=== PATIENT | female | born 1985 | race Caucasian/White ===

== ENCOUNTER 2020-05-10 14:37 | Emergency (ER) | payer OTHER | END 2020-05-10 15:33 | disposition home or self-care (01) | LOC: JVIRT 14:37 | DX: U07.1 COVID-19 (principal) | CPT/HCPCS: C9803; Q3014-GT; U0003 ==

== ENCOUNTER 2020-05-18 13:56 | Emergency (ER) | payer OTHER | END 2020-05-18 15:28 | disposition home or self-care (01) | LOC: JVIRT 13:56 | DX: U07.1 COVID-19 (principal) | CPT/HCPCS: C9803; G2012-GT; U0003 ==